=== PATIENT | male | born 1995 | race African-American/Black ===

== ENCOUNTER 2022-09-26 09:08 | Emergency (ER) | payer OTHER, SELFPAY ==
[2022-09-26 09:19] VITALS: BP 100/58; PULSE 82; RESP 18; TEMP 36.6; O2SAT 98; BMI 28.3
--- OUTSIDE RECORDS SUMMARY | 2022-09-26 09:51 | XMS_ITS | Continuity of Care Document ---
:1995 Author Organization [facility] Address [address] [place] [address]- Care Team Providers Name Role Phone Hamlet MUSTAFA, Chayito Beltran Primary Care Physician [facility]counter [facility] Date(s): 01/04/22 - 02/03/[address] [address] Attending Physician: Naveen Holguin Admitting Physician: Naveen Holguin Referring Physician: AdmtrNaveen Allergies, Adverse Reactions, Alerts No Known Allergies Immunizations Given and Recorded Vaccine Date Status Refusal Reason pneumococcal 23-valent vaccine 04/18/19 Given tetanus/diphtheria/pertussis, acel(Tdap) 04/18/19 Given influenza virus vaccine, inactivated 09/13/15 Given influenza virus vaccine, inactivated 08/07/14 Given influenza virus vaccine, inactivated 08/12/13 Given influenza virus vaccine, inactivated 10/30/12 Given influenza virus vaccine, inactivated 09/09/08 Given Human Papillomavirus Vaccine 05/27/15 Given Human Papillomavirus Vaccine 05/27/14 Given Human Papillomavirus Vaccine 10/30/12 Given Meningococcal Conjugate Vaccine 10/30/12 Given Meningococcal Conjugate Vaccine 09/08/08 Given Varicella Virus Vaccine 01/31/10 Given Varicella Virus Vaccine1 07/28/97 Given Tet/Diphth/Acel, Pertussis (oldterm) 07/31/06 Given Measles/Mumps/Rubella Virus Vaccine2 01/08/01 Given Measles/Mumps/Rubella Virus Vaccine3 12/31/96 Given diphtheria/tetanus/pertussis, acel(DTaP)4 01/08/01 Given diphtheria/tetanus/pertussis, acel(DTaP)5 07/28/97 Given Haemophilus B Conj Vaccine (oldterm)6 07/28/97 Given Haemophilus B Conj Vaccine (oldterm)7 12/31/96 Given Haemophilus B Conj Vaccine (oldterm)8 07/09/96 Given Haemophilus B Conj Vaccine (oldterm)9 02/27/96 Given Poliovirus Vaccine, Tvvvuwcqziu86 07/28/97 Given Poliovirus Vaccine, Beucgwvoknx30 12/31/96 Given Poliovirus Vaccine, Bwphdpmyeza33 07/09/96 Given Poliovirus Vaccine, Ypgivhztbiu37 02/27/96 Given Diphth/Pertussis, Whl Cell/Tet(oldterm)14 12/31/96 Given Diphth/Pertussis, Whl Cell/Tet(oldterm)15 07/09/96 Given Diphth/Pertussis, Whl Cell/Tet(oldterm)16 02/27/96 Given Hepatitis B Vaccine (old term)17 07/09/96 Given Hepatitis B Vaccine (old term)18 01/15/96 Given Hepatitis B Vaccine (old term)19 95 Given 1Admin Note: RBS5Tnrgb Note: CQN5Luvvb Note: IKT0Wknls Note: YNIM0Cqglb Note: SJAZ7Algal Note: MWU3Ansyy Note: APH8Fdgfk Note: HSC5Nklna Note: USD78Edmqv Note: GYW50Kywto Note: RJN17Ckurf Note: RCF07Racbb Note: WUO44Jbmao Note: DTP15 Admin Note: WGG70Citte Note: GQO65Tixff Note: HEP Q39Nyrqg Note: HEP E39Lpxsh Note: HEP B Medications Vitamin D3 50,000 intl units oral capsule 1 capsule = 1,250 mcg, By Mouth, Every week, # 12 capsule, 0 Refills, Maintenance, 01/19/22 10:29:00EST, Capsule, [id number], Partial fill upon patient request if the prescription is for a schedule II opioid drug., 165, cm, 10/16/21... Start Date: 01/19/22 Status: Ordered Problem List Condition Effective Dates Status Health Status Informant Acne NOS(Confirmed) Active Mild Persistent Asthma(Confirmed) Active Dental Caries(Confirmed) Active Social History Social History Type Response Smoking Status Never (less than 100 in life time) entered on: 10/16/21 Sex
--- OUTSIDE RECORDS SUMMARY | 2022-09-26 09:51 | XMS_ITS | Continuity of Care Document ---
:1995 Author Organization [facility] Address [address] [place] [address]- Care Team Providers Name Role Phone Hamlet MUSTAFA, Chayito Beltran Primary Care Physician Encounter [facility] Date(s): 01/11/21 - 01/11/[address] [address]- Discharge Disposition: A-D/C Home Attending Physician: Jayant Amaya MD Admitting Physician: Jayant Amaya MD Referring Physician: Not on Staff, Referring MD Allergies, Adverse Reactions, Alerts Substance Reaction Severity Status NKA Active Immunizations Given and Recorded Vaccine Date Status [...] Conj Vaccine (oldterm)9 02/27/96 Given Poliovirus Vaccine, Ayrvpalzifj84 07/28/97 Given Poliovirus Vaccine, Glbwohnwegy58 12/31/96 Given Poliovirus Vaccine, Vkiftminkuf30 07/09/96 Given Poliovirus Vaccine, Ilztpvrhpjy61 02/27/96 Given Diphth/Pertussis, Whl Cell/Tet(oldterm)14 12/31/96 Given Diphth/Pertussis, Whl Cell/Tet(oldterm)15 07/09/96 Given Diphth/Pertussis, Whl Cell/Tet(oldterm)16 02/27/96 Given Hepatitis B Vaccine (old term)17 07/09/96 Given Hepatitis B Vaccine (old term)18 01/15/96 Given Hepatitis B Vaccine (old term)19 95 Given 1Admin Note: MXY3Uucoo Note: DEI6Quhqx Note: KIW3Saofi Note: CMSJ6Gjxwp Note: VVPC2Thbzf Note: IZJ2Ajwsl Note: RXJ3Jyjtr Note: LGN6Fvomx Note: IHC14Ssefg Note: XUO68Pzhay Note: OTM25Wzjri Note: FET68Yiirb Note: OMJ03Obzky Note: DTP15 Admin Note: FDN42Rtrfm Note: GCR61Tjndq Note: HEP A47Wypdz Note: HEP X67Wgjup Note: HEP B Medications doxycycline monohydrate 100 mg oral capsule 1 capsule = 100 mg, By Mouth, 2 times a day, for 14 days, # 28 capsule, 0 Refills, Acute 01/25/21 17:25:00 EST, 01/11/21 17:25:00 EST, Capsule, [id number], Partial fill upon patient request if the prescription is for a schedule II opi... Start Date: 01/11/21 Stop Date: 01/25/21 Status: OrderedProAir HFA 90 mcg/inh inhalation aerosol with adapter 2 puffs, Inhalation, Every 4 hours, PRN for wheezing, # 2 each, 2 Refills, Maintenance, 09/13/15 11:26:49, Aerosol, 2 puffs Inhalation Every 4 hours,PRN:for wheezing Start Date: 09/13/15 Status: Ordered Problem List Condition Effective Dates Status Health Status Informant Acne NOS(Confirmed) Active Mild Persistent Asthma(Confirmed) Active Dental Caries(Confirmed) Active Vital Signs Most recent to oldest [Reference Range]: 1 Height 166 cm (01/11/21 4:44 PM) Weight 74.6 kg (01/11/21 4:44 PM) Oxygen Saturation [94-100 %] 99 % (01/11/21 4:44 PM) Pulse Rate [55-90 bpm] 76 bpm (01/11/21 4:44 PM) Blood Pressure [90-138/55-84 mm Hg] 126/77 mm Hg (01/11/21 4:44 PM) Respiratory Rate [16-30 br/min] 16 br/min (01/11/21 4:44 PM) Temperature [96.8-100.4 DegF] 98.4 DegF (01/11/21 4:44 PM) Mode of Delivery (Oxygen) Room air (01/11/21 4:44 PM) Blood pressure sites Arm, right (01/11/21 4:44 PM) Temperature Route Temporal (01/11/21 4:44 PM) Dry Weight 74.6 kg (01/11/21 4:44 PM) Dry Weight Obtained Via Standing scale (01/11/21 4:44 PM) Social History Social History Type Response Smoking Status Never (less than 100 in life time) entered on: 10/09/20 Sex
--- OUTSIDE RECORDS SUMMARY | 2022-09-26 09:51 | XMS_ITS | Continuity of Care Document ---
:1995 Author Organization [facility] Address [address] [place] [address]- Care Team Providers Name Role Phone Chayito Mcnulty NP Primary Care Physician [facility]counter [facility] Date(s): 09/15/21 - 10/26/[address] [address]- Attending Physician: Jalen Beckett OD Admitting Physician: Jalen Beckett OD Referring Physician: Chayito Mcnulty NP Allergies, Adverse Reactions, Alerts Substance Reaction Severity [...] Conj Vaccine (oldterm)9 02/27/96 Given Poliovirus Vaccine, Vmkqzalqzal67 07/28/97 Given Poliovirus Vaccine, Hxlhlssgzcm97 12/31/96 Given Poliovirus Vaccine, Lwijghnefud82 07/09/96 Given Poliovirus Vaccine, Gaphzdxngsl75 02/27/96 Given Diphth/Pertussis, Whl Cell/Tet(oldterm)14 12/31/96 Given Diphth/Pertussis, Whl Cell/Tet(oldterm)15 07/09/96 Given Diphth/Pertussis, Whl Cell/Tet(oldterm)16 02/27/96 Given Hepatitis B Vaccine (old term)17 07/09/96 Given Hepatitis B Vaccine (old term)18 01/15/96 Given Hepatitis B Vaccine (old term)19 95 Given 1Admin Note: XKC3Ctsjl Note: UOC7Ubrgb Note: TKH0Ucvuk Note: EXVE9Pnlqb Note: TSQL7Ahaam Note: JCA7Ukkac Note: IYD6Yawja Note: HIZ9Yadvo Note: MAC78Xzdrl Note: FJD16Osxxi Note: JJU54Ilzda Note: JGL66Jqjsq Note: OIC79Elrxs Note: DTP15 Admin Note: SSS09Sylyh Note: ANE31Fqyfq Note: HEP C95Haqye Note: HEP N50Uodjg Note: HEP B Problem List Condition Effective Dates Status Health Status Informant Acne NOS(Confirmed) Active Mild Persistent Asthma(Confirmed) Active Dental Caries(Confirmed) Active Social History Social History Type Response Smoking Status Never (less than 100 in life time) entered on: 10/16/21 Sex
--- OUTSIDE RECORDS SUMMARY | 2022-09-26 09:51 | XMS_ITS | Continuity of Care Document ---
:1995 Author Organization [facility] Address [address] [place] [address]- Care Team Providers Name Role Phone Hamlet MUSTAFA, Chayito Beltran Primary Care Physician [facility]counter [facility] Date(s): 10/17/21 - 11/16/[address] [address]- Attending Physician: Naveen Holguin Admitting Physician: Naveen Holguin Referring Physician: AdmtrNaveen Allergies, Adverse Reactions, Alerts Substance Reaction Severity [...] Conj Vaccine (oldterm)9 02/27/96 Given Poliovirus Vaccine, Geddrsazwnv40 07/28/97 Given Poliovirus Vaccine, Fkahtrqmkdm80 12/31/96 Given Poliovirus Vaccine, Lzxcbvabdul85 07/09/96 Given Poliovirus Vaccine, Iffjwkpgktg96 02/27/96 Given Diphth/Pertussis, Whl Cell/Tet(oldterm)14 12/31/96 Given Diphth/Pertussis, Whl Cell/Tet(oldterm)15 07/09/96 Given Diphth/Pertussis, Whl Cell/Tet(oldterm)16 02/27/96 Given Hepatitis B Vaccine (old term)17 07/09/96 Given Hepatitis B Vaccine (old term)18 01/15/96 Given Hepatitis B Vaccine (old term)19 95 Given 1Admin Note: UXW0Hlmii Note: SQN5Wkpsj Note: EVZ5Dyzon Note: YQQI5Zqunb Note: MHVY0Dgbjw Note: BVT2Fhguc Note: CPI5Bgukm Note: XVL9Oociu Note: JPI67Scmmj Note: GKV16Dbzfc Note: RXL32Nzdpt Note: OXB47Xquuu Note: HOL30Vfgxc Note: DTP15 Admin Note: PXU61Upsgk Note: LKN98Mfsms Note: HEP X16Nqrlv Note: HEP O07Wismi Note: HEP B Problem List Condition Effective Dates Status Health Status Informant Acne NOS(Confirmed) Active Mild Persistent Asthma(Confirmed) Active Dental Caries(Confirmed) Active Social History Social History Type Response Smoking Status Never (less than 100 in life time) entered on: 10/16/21 Sex
--- OUTSIDE RECORDS SUMMARY | 2022-09-26 09:52 | XMS_ITS | Continuity of Care Document ---
:1995 Author Organization [facility] Address [address] [place] [address]- Care Team Providers Name Role Phone Hamlet MUSTAFA, Chayito Beltran Primary Care Physician [facility] Date(s): 09/14/21 - 11/16/[address] [address]- Attending Physician: Not on Staff, Attending MD Allergies, Adverse Reactions, Alerts Substance Reaction [...] Conj Vaccine (oldterm)9 02/27/96 Given Poliovirus Vaccine, Rqeruwpobww30 07/28/97 Given Poliovirus Vaccine, Cgwewmgveha19 12/31/96 Given Poliovirus Vaccine, Nzzspptiltk64 07/09/96 Given Poliovirus Vaccine, Ymdkwcweddz36 02/27/96 Given Diphth/Pertussis, Whl Cell/Tet(oldterm)14 12/31/96 Given Diphth/Pertussis, Whl Cell/Tet(oldterm)15 07/09/96 Given Diphth/Pertussis, Whl Cell/Tet(oldterm)16 02/27/96 Given Hepatitis B Vaccine (old term)17 07/09/96 Given Hepatitis B Vaccine (old term)18 01/15/96 Given Hepatitis B Vaccine (old term)19 95 Given 1Admin Note: UPZ7Xdefc Note: EFU0Bscpf Note: CKB3Jxzkf Note: OPKQ8Ugubw Note: WLJL6Bzuog Note: CQY8Vymfz Note: YRC2Mbypf Note: JFE7Jlleh Note: MKF08Wziiq Note: DGY90Gdonh Note: DXF78Lvvlm Note: VIB86Fgluz Note: DYV61Ywrhp Note: DTP15 Admin Note: RPG26Oqfvv Note: LBF41Cmpix Note: HEP Q75Xeshq Note: HEP J60Dnuaj Note: HEP B Problem List Condition Effective Dates Status Health Status Informant Acne NOS(Confirmed) Active Mild Persistent Asthma(Confirmed) Active Dental Caries(Confirmed) Active Social History Social History Type Response Smoking Status Never (less than 100 in life time) entered on: 10/16/21 Sex
--- OUTSIDE RECORDS SUMMARY | 2022-09-26 09:52 | XMS_ITS | Continuity of Care Document ---
:1995 Author Organization [facility] Address [address] [place] [address]- Care Team Providers Name Role Phone Hamlet MUSTAFA, Chayito Beltran Primary Care Physician [facility]counter [facility] Date(s): 09/15/21 - 10/15/[address] [address]- Allergies, Adverse Reactions, Alerts Substance Reaction Severity [...] Conj Vaccine (oldterm)9 02/27/96 Given Poliovirus Vaccine, Yhfgtkcymwn06 07/28/97 Given Poliovirus Vaccine, Ygidylodblk43 12/31/96 Given Poliovirus Vaccine, Svgpxnqcmxy39 07/09/96 Given Poliovirus Vaccine, Czwqjllefvm07 02/27/96 Given Diphth/Pertussis, Whl Cell/Tet(oldterm)14 12/31/96 Given Diphth/Pertussis, Whl Cell/Tet(oldterm)15 07/09/96 Given Diphth/Pertussis, Whl Cell/Tet(oldterm)16 02/27/96 Given Hepatitis B Vaccine (old term)17 07/09/96 Given Hepatitis B Vaccine (old term)18 01/15/96 Given Hepatitis B Vaccine (old term)19 95 Given 1Admin Note: FTW4Wgtgq Note: UHW3Rthrk Note: XZX7Xdfsz Note: TWMX8Rnjdr Note: CCCR2Vdhmk Note: ZMP5Fqlic Note: SUT6Hihww Note: WEA8Lbnyn Note: XUF74Ogqbh Note: LTT29Josfd Note: WJE72Lmmrk Note: NZG38Ipebe Note: VYQ36Fwzqo Note: DTP15 Admin Note: EPW45Taoff Note: ZPN21Jzzzs Note: HEP I16Fxiie Note: HEP F40Mosvx Note: HEP B Medications Aerochamber See Instructions, # 1 each, Maintenance, to be used with albuterol, 09/14/21 10:35:00 EDT, Supply, 166, cm, 09/14/21 10:28:00 EDT, Height, 74.6, kg, 01/11/21 16:44:00 EST, Dry Weight Start Date: 09/14/21 Status: Orderedalbuterol CFC free 90 mcg/inh inhalation aerosol 2, puffs, Inhalation, Every 4 hours, PRN, # 1 each, Refills 11, Tot. Refills 11, Maintenance, 09/14/21 10:35:00 EDT, Route to Pharmacy Electronically, [id number], [id number], 166, cm, 09/14/21 10:28:00 EDT, H... Start Date: 09/14/21 Status: Orderedbutenafine 1% topical cream 1 application, Topically, Daily, # 30 Gm, 3 Refills, Acute 11/25/21 10:47:00 EST, 09/14/21 10:47:00 EDT, Cream, [facility] #[id number], Partial fill upon patient request if the prescription is fora schedule II opioid drug., 1 application Topical... Start Date: 09/14/21 Stop Date: 11/25/21 Status: OrderedProAir HFA 90 mcg/inh inhalation aerosol [...]
--- OUTSIDE RECORDS SUMMARY | 2022-09-26 09:52 | XMS_ITS | Continuity of Care Document ---
:1995 Author Organization [facility] Address [address] [place] [address]- Care Team Providers Name Role Phone Hamlet MUSTAFA, Chayito Beltran Primary Care Physician [facility] Date(s): 12/26/21 - 01/25/[address] [address]- Allergies, Adverse Reactions, Alerts No Known Allergies [...] Conj Vaccine (oldterm)9 02/27/96 Given Poliovirus Vaccine, Ksuqggayxst57 07/28/97 Given Poliovirus Vaccine, Mzgjugmmlcb98 12/31/96 Given Poliovirus Vaccine, Bcjyhgxitxa87 07/09/96 Given Poliovirus Vaccine, Gxahdxvifrc25 02/27/96 Given Diphth/Pertussis, Whl Cell/Tet(oldterm)14 12/31/96 Given Diphth/Pertussis, Whl Cell/Tet(oldterm)15 07/09/96 Given Diphth/Pertussis, Whl Cell/Tet(oldterm)16 02/27/96 Given Hepatitis B Vaccine (old term)17 07/09/96 Given Hepatitis B Vaccine (old term)18 01/15/96 Given Hepatitis B Vaccine (old term)19 95 Given 1Admin Note: EYQ7Pgayy Note: OQV9Ogkrk Note: HGS5Kkzfo Note: PDRP2Hqvwd Note: QZHM2Yezyq Note: BPG9Uagaq Note: BPC3Lkzjs Note: PEP5Hwmxn Note: HBB03Hbspr Note: ADL27Ujzrk Note: AOJ68Kpvgj Note: NZL39Bcyrz Note: KOY71Dveyr Note: DTP15 Admin Note: GEB61Uwles Note: VJI45Qhevz Note: HEP W50Tdayj Note: HEP G64Yygyc Note: HEP B Medications Vitamin D3 50,000 intl units oral capsule 1 capsule = 1,250 mcg, By Mouth, Every week, # 12 capsule, 0 Refills, Maintenance, 01/19/22 10:29:00EST, Capsule, [facility] #[id number], Partial fill upon patient request if the [...]
--- OUTSIDE RECORDS SUMMARY | 2022-09-26 09:52 | XMS_ITS ---
:1995 Author Support Name Relationship Address Phone Tracie Moya Unavailable [place] [address] PROBLEMS Unknown Problems ALLERGIES No Information ENCOUNTERS Encounter Location Date Diagnosis [facility] [address] [place] [address] [address] [place], [place] [id number] [facility] [address] [place] [address] 15 [address] 2017 [place], [place] [id number] IMMUNIZATIONS No Known Immunizations SOCIAL HISTORY Never Assessed REASON FOR REFERRAL FUNCTIONAL STATUS PLAN OF CARE VITAL SIGNS MEDICATIONS Unknown Medications PROCEDURES No Known procedures RESULTS No Results REASON FOR VISIT Insurance Providers [facility] Member Patient Patient Patient Patient Patient Subscriber Subscriber Subscriber Group Insurance Plan Plan Plan Plan ID Relationship Address Phone Name Date of ID Name Date of No Type Insurance Insurance Insurance Coverage to Subscriber Address Phone Name Dates [employer] [phone] Blue [employer] self [place] [id number] [place] [id number] [facility] [address] [place]
--- OUTSIDE RECORDS SUMMARY | 2022-09-26 09:52 | XMS_ITS | Continuity of Care Document ---
:1995 Author Organization [facility] Address [address] [place] [address]- Care Team Providers Name Role Phone Hamlet YOUTH ASSOCIATE, Chayito Beltran Primary Care Physician [facility] Date(s): 08/22/22 - 09/21/[address] [address]- Allergies, Adverse Reactions, Alerts No Known Allergies [...] Conj Vaccine (oldterm)9 02/27/96 Given Poliovirus Vaccine, Okjdeehaogk51 07/28/97 Given Poliovirus Vaccine, Qbrdroeutet08 12/31/96 Given Poliovirus Vaccine, Nwjmxomsyjl75 07/09/96 Given Poliovirus Vaccine, Bcwkxchkwmm12 02/27/96 Given Diphth/Pertussis, Whl Cell/Tet(oldterm)14 12/31/96 Given Diphth/Pertussis, Whl Cell/Tet(oldterm)15 07/09/96 Given Diphth/Pertussis, Whl Cell/Tet(oldterm)16 02/27/96 Given Hepatitis B Vaccine (old term)17 07/09/96 Given Hepatitis B Vaccine (old term)18 01/15/96 Given Hepatitis B Vaccine (old term)19 95 Given 1Admin Note: DML6Akkqg Note: OID4Lqzvg Note: AIF9Cixkr Note: SJGI6Xgfbp Note: LXDC9Sllhp Note: WMN0Xqchq Note: DLJ4Vbawg Note: IIB1Fbdvx Note: CEU59Hwzgf Note: AGS14Wxpcq Note: VKC27Swegq Note: HRO65Mmomu Note: EWB36Tgjuq Note: DTP15 Admin Note: EGX49Tpjuv Note: IPR36Yeacp Note: HEP S70Ocgpl Note: HEP S97Vcmpm Note: HEP B Medications Vitamin D3 50,000 intl units oral capsule 1 capsule = 1,250 mcg, By Mouth, Every week, # 12 capsule, 0 Refills, Maintenance, 01/19/22 10:29:00EST, [id number], Partial fill upon patient request if the prescription is for a schedule II opioid drug., 165, cm, 10/16/21... Start Date: 01/19/22 Status: Ordered Problem List Condition Confirmation Course Effective Dates Status Health Stat us Informant Acne NOS Confirmed Active Mild Persistent Confirmed Active Asthma Dental Caries Confirmed Active Social History Social History Type Response Smoking Status Never (less than 100 in life time) entered on: 10/16/21 Sex Patient Care team information PersonnelName: Chayito Mcnulty NP Address: Address: [address] [place] [address]
--- NOTE | 2022-09-26 09:58 | ED_ITS ---
HPI - Male Genitourinary General Chief complaint: Urogenital-Male Stated complaint: STD test Time Seen by Provider: 09/26/22 09:31 Source: patient Mode of arrival: ambulatory Limitations: no limitations History of Present Illness HPI Narrative: 26 yo male here seeking STD test. Patient reports unprotected sex last night and would like to get tested for STDs. He is asymptomatic. Related Data Allergies Allergy/AdvReac Type Severity Reaction Status Date / Time Unable to Assess Allergy Verified 09/26/22 09:11 Review of Systems Review of Systems: Yes all other systems are reviewed and are negative Constitutional: Constitutional: Reports no additional constitutional complaints, Denies body ache(s), Denies chills, Denies fever(s), Denies headache(s) and Denies weakness Eyes: Eyes: Reports no additional eye complaints and Denies change in vision ENT: Reports system reviewed and no additional complaints, except as documented, Denies dizziness, Denies headache(s), Denies nasal congestion, Denies nasal discharge and Denies neck pain Cardiovascular: Cardiovascular: Reports no additional cardiovascular complaints, Denies chest pain, Denies leg edema and Denies dyspnea Respiratory: Respiratory: Reports no additional respiratory complaints, Denies cough and Denies dyspnea Gastrointestinal: Gastrointestinal: Reports no additional gastrointestinal complaints, Denies abdominal pain, Denies diarrhea, Denies nausea and Denies vomiting Genitourinary: Genitourinary: Denies hematuria, Denies dysuria, Denies penile discharge, Denies testicular pain, Denies urinary frequency, Denies urinary hesitancy, Denies urinary incontinence and Denies urinary urgency Musculoskeletal: Musculoskeletal: Reports no additional musculoskeletal complaints, Denies back pain, Denies arthralgias, Denies joint swelling, Denies neck pain, Denies numbness and Denies tingling Integumentary/Breasts: Skin/Breast: Reports system reviewed and no additional complaints, except as docu and Denies rash Neurologic: Reports system reviewed and no additional complaints, except as documented, Denies Abnormal speech present, Denies dizziness, Denies headache(s), Denies numbness, Denies tingling and Denies weakness PMFSH Past Medical History Attestation statement: The following information was validated with the patient. Source: old records reviewed and nursing notes reviewed Social History Social History Advance Directives: No Advance Directives Information Provided: No Physical Exam Vital Signs: Vital Signs: Last Vital Signs Temp 98 F 09/26/22 09:19 Pulse 82 09/26/22 09:19 Resp 18 09/26/22 09:19 BP 100/58 L 09/26/22 09:19 Pulse Ox 98 09/26/22 09:19 O2 Del Method 09/26/22 09:19 BMI result Body Mass Index 28.3 Const: General: cooperative, healthy appearing, comfortable and no acute distress Orientation/consciousness: patient oriented x3 Limitations: no limitations HEENT: Head: Yes normal to inspection Ears: hearing grossly normal bilaterally Eyes: General: appearance normal, both eyes and all related structures Neck: Neck: Yes normal visual inspection Chest: Chest palpation & inspection: normal inspection of the chest Resp: Effort & Inspection: normal respiratory effort Skin: General skin exam: no rashes or lesions noted Neuro: General: patient oriented x3 and moves all extremities Cognition (Neuro): normal cognition Speech: No Abnormal speech present Gait exam (Neuro): Normal gait present Extrem: General: Yes normal to inspection MDM - Male Genitourinary MDM Narrative Medical decision making narrative: 26-year-old male here seeking testing for STDs after having unprotected sex last night. He is asymptomatic. We did send testing for gonorrhea and chlamydia however I explained to the patient that he should retest in about 7 days as it may be too soon to test today. Patient is aware of this. [facility]. He should return for any worrisome signs or symptoms. Medical Records Attestation: I reviewed the patient's medical records. Lab Data Attestation: I reviewed the patient's lab results. Discharge Plan Discharge Clinical Impression: Concern about STD in male without diagnosis Patient Disposition: Home, Self-Care Instructions: Sexually Transmitted Diseases (ED), Safe Sex Practices (ED) Additional Instructions: We did send testing for STDs however you should retest in about 1 week to be sure that you are not positive as it is too soon today You may do this at [facility] Referrals: Chayito Mcnulty NP [Primary Care Provider] - 1 week (as needed)
[2022-09-26 11:10] LABS: CT PCR NOT DETECTED (Not Detect.); NG PCR NOT DETECTED (Not Detect.)
== END 2022-09-26 10:11 | disposition home or self-care (01) ==
PROVIDERS: Emergency Provider Emergency Medicine; PCP Nurse Practitioner Family
DX: Z20.2 Contact with and (suspected) exposure to infections with a predominantly sexual mode of transmission (principal)
CPT/HCPCS: 87491; 87591; 99283